=== PATIENT | male | born 1950 | race Caucasian/White ===

== ENCOUNTER → 2022-02-04 12:13 | Outpatient (CLI) | payer MEDICARE, OTHER, SELFPAY ==
--- NOTE | 2022-02-04 12:18 | DI.US.S_ITS ---
PROCEDURE: US PERIPH VENOUS LOW EXTREM BI INDICATIONS: BILATERAL KNEE SWELLING/RULE OUT DVT TECHNIQUE: Real-time imaging, as well as color and pulse Doppler interrogation, were performed of the deep veins of both legs from the inguinal ligament to the popliteal fossa. COMPARISON: [facility], US, US ABD AORTA ANEURYSM SCREEN, 02/04/2022, 12:31. FINDINGS: Right: The common femoral, femoral and popliteal veins are normally compressible, and free of intraluminal thrombus. Color and pulse Doppler demonstrate normal phasic intravascular flow. There is normal augmentation response to distal compression maneuver. Left: The common femoral, femoral and popliteal veins are normally compressible, and free of intraluminal thrombus. Color and pulse Doppler demonstrate normal phasic intravascular flow. There is normal augmentation response to distal compression maneuver. The calf veins are not well seen. IMPRESSION: Negative for deep venous thrombosis. Dictated by: Mehdi Holbrook M.D. on 02/04/2022 at 13:29 Approved by: Mehdi Holbrook M.D. on 02/04/2022 at 13:29
--- NOTE | 2022-02-04 12:18 | DI.US.S_ITS ---
PROCEDURE: US ABD AORTA ANEURYSM SCREEN INDICATIONS: BILATERAL KNEE SWELLING/RULE OUT DVT TECHNIQUE: Real time scanning was performed of the aorta and iliac arteries, with image documentation. COMPARISON: [facility], , PERIP VENOUS LOW EXTREM , 02/04/2022, 12:38. FINDINGS: Aorta: Proximal aortic diameter measures 2.7 cm. Mid-aorta measures 2.5 cm. Distal aortic diameter is 2.2 cm. Iliac arteries: Right common iliac artery measures 1.6 cm. Left common iliac artery measures 1.8 cm. IMPRESSION: Negative for aneurysm. Dictated by: Mehdi Holbrook M.D. on 02/04/2022 at 13:31 Approved by: Mehdi Holbrook M.D. on 02/04/2022 at 13:32
== END ==
PROVIDERS: Family Provider Family Medicine; PCP Family Medicine; Referring Provider Family Medicine; Visit Provider Family Medicine
DX: I83.11 Varicose veins of right lower extremity with inflammation (principal); I83.12 Varicose veins of left lower extremity with inflammation; M25.461 Effusion, right knee; M25.462 Effusion, left knee; M25.561 Pain in right knee; M25.562 Pain in left knee; Z82.49 Family history of ischemic heart disease and other diseases of the circulatory system
CPT/HCPCS: 76706; 93970

== ENCOUNTER 2022-05-24 11:45 | Emergency (ER) | payer MEDICARE, OTHER, SELFPAY ==
[2022-05-24 12:09] VITALS: BP 145/80; PULSE 70; RESP 14; TEMP 36.9; O2SAT 98; BMI 25.6
--- NOTE | 2022-05-24 12:14 | DI.US.S_ITS ---
PROCEDURE: US PERIPH VENOUS LOW EXTREM RT INDICATIONS: SWELLING/PAIN IN CALF TECHNIQUE: Real-time imaging, as well as color and pulse Doppler interrogation, were performed of the lower extremity deep veins from the inguinal ligament to the popliteal fossa. COMPARISON: None. FINDINGS: There is occlusion of the distal superficial femoral vein extending to the popliteal vein. Collaterals are identified in the proximal portion of the superficial vein as well as the midportion also demonstrating thrombus. Remaining deep venous structures are patent. IMPRESSION: Deep venous thrombosis involving the superficial femoral vein as well as popliteal vein. Dictated by: Samantha Kingston M.D. on 05/24/2022 at 13:36 Approved by: Samantha Kingston M.D. on 05/24/2022 at 13:37
--- NOTE | 2022-05-24 14:40 | ED.EXTPRO ---
HPI - Extremity Problem General Chief complaint: Extremity Problem,Nontraumatic Stated complaint: sent by DR for maybe a clot in his RT calf Time Seen by Provider: 05/24/22 14:12 Source: patient and family Mode of arrival: Ambulatory Limitations: no limitations History of Present Illness HPI Narrative: Patient is a 71-year-old male. 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 He has been on this for the past couple days. Here for evaluation of swelling and pain to his right leg/right calf. He was sent by his primary doctor for concern of a DVT. He is never had a DVT in the past. Has no chest pain. No shortness of breath. No trauma. No prolonged immobilization. Related Data Home Medications Medication Instructions Recorded Confirmed ibuprofen 200 mg tablet 200 mg PO Q6HP ##0 01/08/13 Previous Rx's Medication Instructions Recorded rivaroxaban 15 mg tablet (Xarelto) 15 mg PO BID 21 days #42 tabs 05/24/22 Allergies Allergy/AdvReac Type Severity Reaction Status Date / Time No Known Drug Allergies Allergy Verified 05/24/22 12:14 Review of Systems Constitutional Constitutional: Reports system reviewed and no additional complaints, except as documented Cardiovascular Cardiovascular: Reports system reviewed and no additional complaints, except as documented Respiratory Respiratory: Reports system reviewed and no additional complaints, except as documented Musculoskeletal Musculoskeletal: Reports system reviewed and no additional complaints, except as documented Integumentary/Breasts Skin/Breast: Reports system reviewed and no additional complaints, except as documented Hematologic/Lymphatic On Anticoagulants: No Patient History Social History Smoking Status: Former smoker Smoking Status: Former smoker alcohol intake frequency: 0-2 drinks per day Substance Use Type: does not use Exam Initial Vital Signs Initial Vital Signs: Vital Signs Temperature 98.4 F 05/24/22 12:09 Pulse Rate 70 05/24/22 12:09 Respiratory Rate 14 05/24/22 12:09 Blood Pressure 145/80 H 05/24/22 12:09 Pulse Oximetry 98 05/24/22 12:09 Oxygen Delivery Method 05/24/22 12:09 HENMT Head: normal to inspection and normocephalic Resp Effort & Inspection: normal respiratory effort Cardio Rate: regular rate Skin General: no rashes or lesions noted Neuro Sensory Exam: no sensory deficits noted Extrem Other: Right calf swelling Course Orders Ordered: ED Orders 05/24/22 12:14 US periph venous low extrem rt Stat Vital Signs Vital signs: Vital Signs - 8 hr 05/24/22 12:09 Temperature 98.4 F Pulse Rate 70 Respiratory Rate 14 Blood Pressure 145/80 H Pulse Oximetry 98 Oxygen Delivery Method Room Air MDM - Extremity (Nontraumatic) Imaging Data US - DVT: Radiologist's Impression: [address] [address] Ultrasound Report Signed Patient: Josh Winslow MR#: [id number] : 1950 Acct:[id number] Age/Sex: 71 / M Date of Service: 05/24/22 Loc: ED Accession Number: [id number] ?? Procedure: US periph venous low extrem rt Ordering Provider: Josh Villarreal D.O. PROCEDURE:? US PERIPH VENOUS LOW EXTREM RT ? INDICATIONS:? SWELLING/PAIN IN CALF ? TECHNIQUE:? Real-time imaging, as well as color and pulse Doppler interrogation, were performed of the lower extremity deep veins from the inguinal ligament to the popliteal fossa.? ? COMPARISON:? None. ? FINDINGS:? There is occlusion of the distal superficial femoral vein extending to the popliteal vein.? Collaterals are identified in the proximal portion of the superficial vein as well as the midportion also demonstrating thrombus.? Remaining deep venous structures are patent. ? IMPRESSION:? Deep venous thrombosis involving the superficial femoral vein as well as popliteal vein. ? ? Dictated by: Samantha Kingston M.D. on 05/24/2022 at 13:36 ? ? Approved by: Samantha Kingston M.D. on 05/24/2022 at 13:37 [facility] Narrative Medical decision making narrative: No chest pain. No shortness of breath. Has a confirmed DVT in the right lower extremity and physical exam findings consistent with this. Will start the patient on Xarelto. We did discuss the risks and benefits of this. We did discuss follow-up instructions and return precautions. He expressed understanding and agreement. Discharge Plan Departure Patient Disposition: Home Clinical Impression: Deep vein thrombosis of lower extremity Instructions: DI for Deep Vein Thrombosis Activity Restrictions/Additional Instructions: A prescription for a medicine called rivaroxaban/Xarelto was sent to [facility] per your request. Please take it as directed. This is the 1st 21 day treatment of this medication. Treatment will be required after this so please contact your primary doctor for a follow-up. Return to the emergency department for any new worsening symptoms. Prescriptions: New Xarelto 15 mg tablet 15 mg PO BID 21 Days Qty: 42 0RF Rx Instructions: must administer with evening meal No Action ibuprofen 200 MG tablet 200 mg PO Q6HP Qty: 0 Referrals: Romy Martinez MD [Primary Care Provider] -
[2022-05-24 14:52] VITALS: BP 135/75; PULSE 66; RESP 18; O2SAT 99
== END 2022-05-24 14:53 | disposition home or self-care (01) ==
PROVIDERS: Emergency Provider Emergency Medicine; Family Provider Family Medicine; PCP Family Medicine
DX: I82.401 Acute embolism and thrombosis of unspecified deep veins of right lower extremity (principal)
CPT/HCPCS: 93971; 99283

== ENCOUNTER → 2022-06-20 14:51 | Outpatient (CLI) | payer MEDICARE, OTHER, SELFPAY ==
--- NOTE | 2022-06-20 14:53 | DI.CT.S_ITS ---
PROCEDURE: CT IVP A/P W/WO INDICATIONS: MICROSCOPIC HEMATURIA TECHNIQUE: Optional 5 mm thick noncontrast images acquired from the diaphragm to the symphysis pubis. After the administration of intravenous contrast, 5 mm thick images acquired from the diaphragm to the symphysis pubis after a 10-minute delay. 2 mm thick coronal and sagittal reformats were then performed of the kidneys and ureters. For radiation dose reduction, the following was used: automated exposure control, adjustment of mA and/or kV according to patient size. COMPARISON: None. FINDINGS: Image quality: Good Lower chest: Scattered scarring/atelectasis. Solid organs: Subcentimeter lesions are too small to characterize. Liver is otherwise unremarkable. Gallbladder is unremarkable. No pathologic dilation of the biliary tree or pancreatic duct. There is a cystic lesion measuring 1.4-1.5 cm in the body of the pancreas. Tiny pancreatic calcifications suggesting of prior inflammation. No splenomegaly. No adrenal nodules. Bosniak 1 and 2 renal lesions are present, for which no dedicated followup is necessary per 2019 proposed guidelines. No hydronephrosis. No ureter filling defect. No radiopaque calculus. Bladder is mildly distended, without a measurable mass. Prostatomegaly, heterogeneous enhancement, and suspected median lobe hypertrophy. Vessels and lymph nodes: No abdominal aortic aneurysm or pathologic adenopathy by size criteria. Bowel and peritoneum: No bowel obstruction. No pathologic ascites. Moderate fecal loading. Focal narrowing at the hepatic flexure is seen in large bowel. Body wall: Unremarkable Pelvis: As above Bones: No acute or suspicious osseous lesions. Scattered degenerative changes. IMPRESSION: No upper tract disease. Consider cystoscopy to evaluate for lower tract disease. There is prostatomegaly, heterogeneous enhancement, and suspected median lobe hypertrophy, not well evaluated on CT. Consider correlation with PSA and if needed MRI. Narrowing of the hepatic flexure of the colon, consider correlation with age-appropriate colonoscopy results. No discrete mass. 1.4 cm cystic lesion of the body of the pancreas, consider nonemergent follow-up with pancreas MRI. Small pancreatic calcifications suggestive of prior inflammation. Other findings as above. Dictated by: Elías River M.D. on 06/20/2022 at 16:00 Approved by: Elías River M.D. on 06/20/2022 at 16:07
== END ==
PROVIDERS: Family Provider Family Medicine; PCP Family Medicine; Referring Provider Urology; Visit Provider Urology
DX: R31.29 Other microscopic hematuria (principal); K86.2 Cyst of pancreas; N40.0 Benign prostatic hyperplasia without lower urinary tract symptoms
CPT/HCPCS: 74178; Q9967

== ENCOUNTER → 2022-08-09 11:42 | Outpatient (CLI) | payer MEDICARE, OTHER, SELFPAY ==
--- NOTE | 2022-08-09 | DI.MRI.S_ITS ---
PROCEDURE: MR ABDOMEN WO/W CON INDICATIONS: Cyst of pancreas TECHNIQUE: Coronal HASTE, axial 2D FLASH in- and [id number]; axial breath-hold T2 FSE with fat saturation from the hepatic dome to the iliac crests. Oblique coronal thin-slice and radial thick slab HASTE through the biliary system. Dynamic axial VIBE during administration of contrast. Post-contrast coronal VIBE or 2D FLASH with fat saturation from the hepatic dome to the iliac crests. Optional diffusion weighted imaging and ADC may be performed. COMPARISON: [facility], CT, CT IVP A/P W/WO, 06/20/2022, 15:09. FINDINGS: Image quality: Good. Pancreas and biliary system: No intrahepatic or extrahepatic biliary ductal dilatation. The gallbladder is not distended. No gallstones identified. No pancreatic ductal dilatation. Cyst in the body of the pancreas measuring 1.4 cm, (10/15). No main duct communication is seen. No enhancement or restricted diffusion. No loculated peripancreatic fluid collection. Solid organs: Liver is normal in size and enhancement. Small hepatic cysts. Spleen is normal in size and enhancement. No adrenal nodules. Kidneys are normal in size and enhancement, without hydronephrosis. Small T2 hyperintense renal cysts. Nodes and vessels: No retroperitoneal or mesenteric adenopathy by size criteria. Aorta and inferior vena cava are normal in size. Bowel and peritoneum: Unenhanced bowel loops are normal in caliber throughout. No free fluid. Lung bases: No basal pleural effusions. Heart size is normal. Bones and soft tissues: No ventral hernias. Bone marrow is normal in overall signal. Probable intraosseous hemangioma at T7. IMPRESSION: 1. Cyst at the body of the pancreas measuring 1.4 cm. No suspicious imaging features. Recommend follow-up CT pancreas or MRI in 2 years to demonstrate stability. 2. No biliary or pancreatic ductal dilatation. Dictated by: Marcus Persaud M.D. on 08/09/2022 at 21:15 Approved by: Marcus Persaud M.D. on 08/09/2022 at 21:26
== END ==
PROVIDERS: Family Provider Family Medicine; PCP Family Medicine; Referring Provider Nurse Practitioner Family; Visit Provider Nurse Practitioner Family
DX: K86.2 Cyst of pancreas (principal)
CPT/HCPCS: 74183; A9579

== ENCOUNTER 2022-11-15 11:07 | Emergency (ER) | payer MEDICARE, OTHER, SELFPAY ==
[2022-11-15] VITALS (42 sets, daily range): BP systolic 97–124; BP diastolic 53–67; PULSE 62–76; RESP 15–25; TEMP 36.9; O2SAT 90–97; BMI 25.6
--- NOTE | 2022-11-15 11:18 | DI.RAD.S_ITS ---
PROCEDURE: XR CHEST 1V INDICATIONS: suspected sepsis TECHNIQUE: One view of the chest was acquired. COMPARISON: [facility], CHEST 2 VIEW, 01/28/2015, 15:52. FINDINGS: Surgical changes and devices: None. Lungs and pleura: No dense consolidation. No pleural effusion. Mediastinum: Mediastinal contours appear normal. Heart size is normal. Bones and chest wall: No suspicious bony lesions. Overlying soft tissues appear unremarkable. IMPRESSION: No acute radiographic abnormality Dictated by: Elías River M.D. on 11/15/2022 at 13:06 Approved by: Elías River M.D. on 11/15/2022 at 13:07
[2022-11-15 11:33] LABS: Add Manual Diff / Slide Review NO; Basophils Absolute Auto 100 /uL (0-100); Basophils Percent Auto 0.7 % (0-2); Eosinophils Absolute Auto 100 /uL (0-450); Eosinophils Percent Auto 0.9 % (2-4); Hemoglobin 14.6 g/dL (13.5-17.5); Lymphocytes Absolute Auto 1400 /uL (1100-4500); Lymphocytes Percent Auto 18.4 % (25-40); Mean Corpuscular HGB Conc 32.4 % (30-36); Mean Corpuscular Hemoglobin 27.5 PG (26-34); Monocytes Absolute Auto 800 /uL (0-900); Monocytes Percent Auto 9.7 % (3-14); Neutrophils Absolute Auto 5500 /uL (1500-7000); Neutrophils Percent Auto 70.3 % (50-75); Platelet Count 276 X10^3/uL (150-400); Red Blood Cell Count 5.29 X10^6/uL (4.5-5.9); Red Cell Distribution Width 14.1 % (11.6-14.8); White Blood Cell Count 7.8 X10^3/uL (4.5-11.0)
[2022-11-15 11:38] LABS: INR 1.1 (0.9-1.3)
[2022-11-15 11:41] LABS: PTT Partial Thromboplastin Tim 28 SECONDS (26-36)
[2022-11-15 11:42] LABS: Alanine Aminotransferase 21 IU/L (<50); Albumin 3.3 g/dL (3.5-5.0); Albumin Globulin Ratio 1.3 (1.0-2.8); Alkaline Phosphatase 50 U/L (38-126); Aspartate Aminotransferase 32 IU/L (17-59); BUN Creatinine Ratio 22.2 (6-22); Bilirubin Total 0.4 mg/dL (0.2-1.3); Blood Urea Nitrogen 24 mg/dL (9-20); Calcium 9.4 mg/dL (8.4-10.2); Carbon Dioxide 30 mmol/L (22-32); Chloride 103 mmol/L (98-107); Estimated Glomerular Filt Rate > 60 mL/min (>60); Globulin 2.6 g/dL (1.7-4.1); Glucose 98 mg/dL (80-110); HEMOLYSIS < 15 (0-50); Lactate (Lactic Acid) 1.6 mmol/L (0.7-2.1); Lipase 42 U/L (23-300); Potassium 4.4 mmol/L (3.4-5.1); Sodium 138 mmol/L (137-145); Total Protein 5.9 g/dL (6.3-8.2)
[2022-11-15 11:58] LABS: Procalcitonin 0.08 ng/mL (<0.5)
[2022-11-15] MEDS: SODIUM CHLORIDE 0.9% 1,000 ML 1000 ML IV (12:10)
[2022-11-15 12:17] LABS: Adenovirus Not Detected (Not Detect); B. parapertussis Not Detected (Not Detecte); Bordetella pertussis Not Detected (Not Detecte); Chlamydophila pneumoniae Not Detected (Not Detect); Coronavirus 229E Not Detected (Not Detect); Coronavirus HKU1 Not Detected (Not Detect); Coronavirus NL 63 Not Detected (Not Detect); Coronavirus OC43 Not Detected (Not Detect); Human Metapneumovirus Not Detected (Not Detect); Human Rhinovirus/Enterovirus Not Detected (Not Detect); Influenza A Not Detected (Not Detect); Influenza B Not Detected (Not Detect); Mycoplasma pneumoniae Not Detected (Not Detect); Parainfluenza Virus 1 Not Detected (Not Detect); Parainfluenza Virus 2 Not Detected (Not Detect); Parainfluenza Virus 3 Not Detected (Not Detect); Parainfluenza Virus 4 Not Detected (Not Detect); Respiratory Syncytial Virus Not Detected (Not Detect); SARS- CoV-2 Not Detected (Not Detecte)
[2022-11-15 12:26] LABS: NT-proBNP (BNP-Adult 18+) 259 pg/mL (<125); Troponin I < 0.012 ng/mL (0.01-0.034)
--- NOTE | 2022-11-15 12:28 | PC.NURSE ---
Pt states BP is typically 110/65. Pt is tapering off of a year of daily steroids. Pt states he has a new RX for methotrexate
[2022-11-15 14:08] LABS: D Dimer 27449 ng/ml (<500)
--- NOTE | 2022-11-15 14:23 | DI.CT.S_ITS ---
PROCEDURE: CT ANGIO CHEST PE PROTOCOL INDICATIONS: Elevated dimer; SOB TECHNIQUE: After the administration of intravenous contrast, 2 mm thick sections acquired from the pulmonary apices to the posterior costophrenic angles. 3-dimensional maximum intensity projection (MIP) coronal and sagittal reformats were then acquired through the thorax. For radiation dose reduction, the following was used: automated exposure control, adjustment of mA and/or kV according to patient size. COMPARISON: [facility], CR, XR CHEST 1V, 11/15/2022, 11:41. FINDINGS: Image quality: Good Lungs and pleura: Emphysema. Scattered scarring/atelectasis. Mild peripheral ground-glass opacities, for example in the lateral inferior right upper lobe. No pleural effusions. Mediastinum, heart, and esophagus: Large right-sided pulmonary embolism, involving the main pulmonary artery. There also subsegmental emboli in left. No hiatal hernia. Borderline enlarged mediastinal lymph nodes, possibly reactive, attention on follow-up there is CT evidence of right heart strain. Chest wall and thyroid: Unremarkable Upper abdomen: No gross abnormality on these arterial phase images. Suspected pancreatic cystic lesion is seen in the body measuring up to 1.4 cm. This was noted on prior MRI. Pancreatic calcifications indicating prior inflammation. There is also suspected left lobe hepatic cyst. Bones: No acute or suspicious osseous finding. There is a vertebral hemangioma. IMPRESSION: Bilateral pulmonary emboli, large on the right involving the right pulmonary artery. This was communicated to Michael CONNELLY at the time stamp below. There are suspected pulmonary infarcts versus inflammatory/infectious ground-glass opacities. Borderline enlarged mediastinal lymph nodes are present. Consider future imaging surveillance to assess for resolution. There is CT evidence of right heart strain. Other findings as above. Dictated by: Elías River M.D. on 11/15/2022 at 15:02 Approved by: Elías River M.D. on 11/15/2022 at 15:08
--- NOTE | 2022-11-15 14:24 | ED_ITS ---
HPI - General Adult <Sylvia Rodriguez PA-C - Last Filed: 11/15/22 20:32> General Chief complaint: Shortness of Breath/Dyspnea Stated complaint: Pneumonia Time Seen by Provider: 11/15/22 12:11 Source: patient Mode of arrival: Ambulatory History of Present Illness HPI narrative: 71-year-old male with past medical history CPPD, pseudogout, DVT presents to the ED with 10 days of worsening shortness of breath and fatigue. Patient states he was diagnosed with a pneumonia last week at [place], completed a full course of Zi thromax with minimal relief. Patient endorses that his fatigue, lightheadedness, shortness of breath are actually worsening. Patient denies fever, chills for the past 2 days. Patient denies nausea, vomiting, abdominal pain, flank pain, dysuria, dizziness, syncope. Related Data Home Medications Medication Instructions Recorded Confirmed ibuprofen 200 mg tablet 200 mg PO Q6HP ##0 01/08/13 Allergies Allergy/AdvReac Type Severity Reaction Status Date / Time colchicine Allergy Verified 11/15/22 11:13 Review of Systems <Sylvia Rodriguez PA-C - Last Filed: 11/15/22 20:32> Review of Systems ROS Unobtainable: All systems reviewed & are unremarkable except as noted in HPI and below Constitutional Constitutional: Denies chills, Reports fatigue, Denies fever(s), Denies frequent falls, Reports lethargy and Denies weakness Eyes Eyes: Denies change in vision, Denies eye discharge, Denies irritation and Denies loss of vision ENT Ears, Nose, Mouth, and Throat: Denies change in voice, Denies dizziness, Denies neck pain, Denies sore throat and Denies throat swelling Cardiovascular Cardiovascular: Denies chest pain, Denies irregular heart rhythm, Reports lightheadedness, Denies palpitations, Reports dyspnea, Reports dyspnea on exertion and Denies orthopnea Respiratory Respiratory: Denies cough, Reports dyspnea, Reports dyspnea on exertion and Denies wheezing Gastrointestinal Gastrointestinal: Denies abdominal pain, Denies change in bowel habits, Denies diarrhea, Denies nausea and Denies vomiting Genitourinary Genitourinary: Denies hematuria, Denies flank pain, Denies urinary incontinence and Denies urinary urgency Musculoskeletal Musculoskeletal: Denies back pain, Denies muscle weakness, Denies neck pain, Denies numbness and Denies tingling Integumentary/Breasts Skin/Breast: Denies pruritus, Denies erythema, Denies rash and Denies wounds Neurologic Neurologic: Denies behavioral changes, Denies confusion, Denies dizziness, Denies frequent falls, Denies loss of vision, Denies numbness, Denies tingling and Denies weakness Psychiatric Psychiatric: Denies anxiety, Denies behavioral changes, Denies confusion, Denies depression, Denies homicidal ideation and Denies suicidal ideation Endocrine Endocrine: Reports fatigue, Denies flushing and Denies palpitations Hematologic/Lymphatic Hematologic/Lymphatic: Denies easy bruising Allergic/Immunologic Allergic/Immunologic: Denies urticaria, Denies throat swelling and Denies wheezing Patient History <Sylvia Rodriguez PA-C - Last Filed: 11/15/22 20:32> Social History Smoking Status: Former smoker Smoking Status: Former smoker alcohol intake frequency: 0-2 drinks per day Substance Use Type: does not use Exam <Sylvia Rodriguez PA-C - Last Filed: 11/15/22 20:32> Narrative Exam Narrative: Const General:?cooperative, healthy appearing and comfortable [facility] Head:?normal to inspection Ears:?hearing grossly normal bilaterally Nose:?external nose normal Face and sinus:?normal facial exam and sinuses nontender Mouth:?oral mucosae normal Throat:?posterior oropharynx normal Eyes General:?appearance normal, both eyes and all related structures Neck Neck:?normal visual inspection and no lymphadenopathy noted Resp Effort & Inspection:?normal respiratory effort Auscultation:?clear to auscultation bilaterally Cardio Rate:?regular rate Rhythm:?regular rhythm Neuro General:?patient alert, patient awake and patient oriented x3 Initial Vital Signs Initial Vital Signs: Vital Signs Temperature 98.5 F 11/15/22 11:08 Pulse Rate 75 11/15/22 11:08 Respiratory Rate 15 11/15/22 11:08 Blood Pressure 108/64 11/15/22 11:08 Pulse Oximetry 92 11/15/22 11:08 Oxygen Delivery Method Room Air 11/15/22 11:08 <Hebert White DO - Last Filed: 11/16/22 02:22> Initial Vital Signs Initial Vital Signs: Vital Signs Temperature 98.5 F 11/15/22 11:08 Pulse Rate 75 11/15/22 11:08 Respiratory Rate 15 11/15/22 11:08 Blood Pressure 108/64 11/15/22 11:08 Pulse Oximetry 92 11/15/22 11:08 Oxygen Delivery Method Room Air 11/15/22 11:08 Course <Sylvia Rodriguez PA-C - Last Filed: 11/15/22 20:32> Orders Ordered: ED Orders 11/15/22 22:00 PTT Partial Thromboplastin Juvenal Q6H 11/16/22 03:45 PTT Partial Thromboplastin Juvenal Q6H 11/16/22 05:00 Hemoglobin and Hematocrit DAILY Platelet Count DAILY Discontinued Medications Heparin Sodium (Porcine) (Heparin 5,000 Unit/Ml Vial) 7,400 unit 80 unit/kg (7400 unit) IV NOW ONE Stop: 11/15/22 15:41 Last Admin: 11/15/22 16:07 Dose: 7,400 unit Documented By: SIGIFREDO Sodium Chloride (Normal Saline 0.9%) 1,000 mls @ 1,000 mls/hr IV BOLUS ONE Stop: 11/15/22 12:17 Last Infusion: 11/15/22 13:10 Dose: 0 mls/hr Documented By: Admin: 11/15/22 12:10 Dose: 1,000 mls/hr Documented By: SIGIFREDO Sodium Chloride (Normal Saline 0.9%) 1,000 mls @ 500 mls/hr IV BOLUS ONE Stop: 11/15/22 17:33 Last Admin: 11/15/22 17:13 Dose: Not Given Documented By: SIGIFREDO(2) Sodium Chloride (Normal Saline 0.9%) 1,000 mls @ 500 mls/hr IV BOLUS ONE Stop: 11/15/22 17:36 Last Infusion: 11/15/22 19:27 Dose: 0 mls/hr Documented By: Admin: 11/15/22 15:44 Dose: 500 mls/hr Documented By: SIGIFREDO Heparin Sodium/Dextrose (Heparin Drip) 25,000 unit in 500 mls @ 33.475 mls/hr IV CONT JAKE; Protocol Last Titration: 11/15/22 23:50 Dose: 0 units/kg/hr, 0 mls/hr Documented By: GELY Co-signed By: CARLOS Titration: 11/15/22 22:59 Dose: 0 units/kg/hr, 0 mls/hr Documented By: DREAD Co-signed By: CARLOS Admin: 11/15/22 16:08 Dose: 18 units/kg/hr, 33.475 mls/hr Documented By: SIGIFREDO Co-signed By: TATI Vital Signs Vital signs: Vital Signs - 8 hr 11/15/22 18:30 11/15/22 18:30 11/15/22 18:45 Pulse Rate 67 Respiratory Rate 24 Blood Pressure 124/66 112/60 Pulse Oximetry 91 Oxygen Delivery Method Oximask Oxygen Flow Rate 5 11/15/22 18:45 11/15/22 19:00 11/15/22 19:00 Pulse Rate 62 62 Respiratory Rate 23 23 Blood Pressure 111/62 Pulse Oximetry 91 94 Oxygen Delivery Method Oximask Oximask Oxygen Flow Rate 5 8 11/15/22 19:40 11/15/22 20:01 Pulse Rate 68 68 Respiratory Rate 23 23 Blood Pressure 113/67 113/67 Pulse Oximetry 94 94 Oxygen Delivery Method Oxygen Flow Rate <Hebert White DO - Last Filed: 11/16/22 02:22> Orders Ordered: ED Orders 11/15/22 22:00 PTT Partial Thromboplastin Juvenal Q6H 11/16/22 03:45 PTT Partial Thromboplastin Juvenal Q6H 11/16/22 05:00 Hemoglobin and Hematocrit DAILY Platelet Count DAILY Discontinued Medications Heparin Sodium (Porcine) (Heparin 5,000 Unit/Ml Vial) 7,400 unit 80 unit/kg (7400 unit) IV NOW ONE Stop: 11/15/22 15:41 Last Admin: 11/15/22 16:07 Dose: 7,400 unit Documented By: SIGIFREDO Sodium Chloride (Normal Saline 0.9%) 1,000 mls @ 1,000 mls/hr IV BOLUS ONE Stop: 11/15/22 12:17 Last Infusion: 11/15/22 13:10 Dose: 0 mls/hr Documented By: Admin: 11/15/22 12:10 Dose: 1,000 mls/hr Documented By: SIGIFREDO Sodium Chloride (Normal Saline 0.9%) 1,000 mls @ 500 mls/hr IV BOLUS ONE Stop: 11/15/22 17:33 Last Admin: 11/15/22 17:13 Dose: Not Given Documented By: SIGIFREDO(2) Sodium Chloride (Normal Saline 0.9%) 1,000 mls @ 500 mls/hr IV BOLUS ONE Stop: 11/15/22 17:36 Last Infusion: 11/15/22 19:27 Dose: 0 mls/hr Documented By: Admin: 11/15/22 15:44 Dose: 500 mls/hr Documented By: SIGIFREDO Heparin Sodium/Dextrose (Heparin Drip) 25,000 unit in 500 mls @ 33.475 mls/hr IV CONT JAKE; Protocol Last Titration: 11/15/22 23:50 Dose: 0 units/kg/hr, 0 mls/hr Documented By: GELY Co-signed By: CARLOS Titration: 11/15/22 22:59 Dose: 0 units/kg/hr, 0 mls/hr Documented By: DREAD Co-signed By: CARLOS Admin: 11/15/22 16:08 Dose: 18 units/kg/hr, 33.475 mls/hr Documented By: SIGIFREDO Co-signed By: TATI Vital Signs Vital signs: Vital Signs - 8 hr 11/15/22 18:30 11/15/22 18:30 11/15/22 18:45 Pulse Rate 67 Respiratory Rate 24 Blood Pressure 124/66 112/60 Pulse Oximetry 91 Oxygen Delivery Method Oximask Oxygen Flow Rate 5 11/15/22 18:45 11/15/22 19:00 11/15/22 19:00 Pulse Rate 62 62 Respiratory Rate 23 23 Blood Pressure 111/62 Pulse Oximetry 91 94 Oxygen Delivery Method Oximask Oximask Oxygen Flow Rate 5 8 11/15/22 19:40 11/15/22 20:01 Pulse Rate 68 68 Respiratory Rate 23 23 Blood Pressure 113/67 113/67 Pulse Oximetry 94 94 Oxygen Delivery Method Oxygen Flow Rate Medical Decision Making <Sylvia Rodriguez PA-C - Last Filed: 11/15/22 20:32> Lab Data 11/15/22 11:15 11/15/22 11:15 Labs: Lab Results 11/15/22 11/15/22 11/15/22 Range/Units 11:13 11:15 11:15 WBC 7.8 (4.5-11.0) X10^3/uL RBC 5.29 (4.5-5.9) X10^6/uL Hgb 14.6 (13.5-17.5) g/dL Hct 45.0 (41-53) % MCV 85.0 (80-100) fL MCH 27.5 (26-34) PG MCHC 32.4 (30-36) % RDW 14.1 (11.6-14.8) % Plt Count 276 (150-400) X10^3/uL Neut % (Auto) 70.3 (50-75) % Lymph % (Auto) 18.4 L (25-40) % [place] % (Auto) 9.7 (3-14) % Eos % (Auto) 0.9 L (2-4) % Baso % (Auto) 0.7 (0-2) % Neut # (Auto) 5500 (1916-9175) /uL Lymph # (Auto) 1400 (3489-6120) /uL [place] # (Auto) 800 (0-900) /uL Eos # (Auto) 100 (0-450) /uL Baso # (Auto) 100 (0-100) /uL PT 13.0 H (10.1-12.7) SECONDS INR 1.1 (0.9-1.3) APTT 28 (26-36) SECONDS D-Dimer (<500) ng/ml Sodium (137-145) mmol/L Potassium (3.4-5.1) mmol/L Chloride (98-107) mmol/L Carbon Dioxide (22-32) mmol/L BUN (9-20) mg/dL Creatinine (0.66-1.25) mg/dL Estimated GFR (>60) mL/min BUN/Creatinine Ratio (6-22) Glucose (80-110) mg/dL Lactate (0.7-2.1) mmol/L Calcium (8.4-10.2) mg/dL Total Bilirubin (0.2-1.3) mg/dL AST (17-59) IU/L ALT (<50) IU/L Alkaline Phosphatase (38-126) U/L Troponin I (0.01-0.034) ng/mL NT-Pro-B Natriuret Pep (<125) pg/mL Total Protein (6.3-8.2) g/dL Albumin (3.5-5.0) g/dL Globulin (1.7-4.1) g/dL Albumin/Globulin Ratio (1.0-2.8) Lipase (23-300) U/L Procalcitonin (<0.5) ng/mL Chlamy pneumoniae PCR Not detected (Not Detect) Adenovirus (PCR) Not detected (Not Detect) B. pertussis DNA (PCR) Not detected (Not Detecte) B.parapertussis DNA PCR Not detected (Not Detecte) Coronavirus OC43 (PCR) Not detected (Not Detect) Coronavirus HKU1 (PCR) Not detected (Not Detect) Coronavirus 229E (PCR) Not detected (Not Detect) SARS-CoV-2 (PCR) Not detected (Not Detecte) Coronavirus NL63 (PCR) Not detected (Not Detect) Human Metapneumovir PCR Not detected (Not Detect) Influenza Type A (PCR) Not detected (Not Detect) Influenza Type B (PCR) Not detected (Not Detect) M. pneumoniae (PCR) Not detected (Not Detect) Parainfluenza 1 (PCR) Not detected (Not Detect) Parainfluenza 2 (PCR) Not detected (Not Detect) Parainfluenza 3 (PCR) Not detected (Not Detect) Parainfluenza 4 (PCR) Not detected (Not Detect) RSV (PCR) Not detected (Not Detect) Entero/Rhino (PCR) Not detected (Not Detect) 11/15/22 11/15/22 11/15/22 Range/Units 11:15 11:15 11:15 WBC (4.5-11.0) X10^3/uL RBC (4.5-5.9) X10^6/uL Hgb (13.5-17.5) g/dL Hct (41-53) % MCV (80-100) fL MCH (26-34) PG MCHC (30-36) % RDW (11.6-14.8) % Plt Count (150-400) X10^3/uL Neut % (Auto) (50-75) % Lymph % (Auto) (25-40) % [place] % (Auto) (3-14) % Eos % (Auto) (2-4) % Baso % (Auto) (0-2) % Neut # (Auto) (9745-9320) /uL Lymph # (Auto) (2172-3433) /uL [place] # (Auto) (0-900) /uL Eos # (Auto) (0-450) /uL Baso # (Auto) (0-100) /uL PT (10.1-12.7) SECONDS INR (0.9-1.3) APTT (26-36) SECONDS D-Dimer (<500) ng/ml Sodium 138 (137-145) mmol/L Potassium 4.4 (3.4-5.1) mmol/L Chloride 103 (98-107) mmol/L Carbon Dioxide 30 (22-32) mmol/L BUN 24 H (9-20) mg/dL Creatinine 1.08 (0.66-1.25) mg/dL Estimated GFR > 60 (>60) mL/min BUN/Creatinine Ratio 22.2 H (6-22) Glucose 98 (80-110) mg/dL Lactate 1.6 (0.7-2.1) mmol/L Calcium 9.4 (8.4-10.2) mg/dL Total Bilirubin 0.4 (0.2-1.3) mg/dL AST 32 (17-59) IU/L ALT 21 (<50) IU/L Alkaline Phosphatase 50 (38-126) U/L Troponin I < 0.012 (0.01-0.034) ng/mL NT-Pro-B Natriuret Pep 259 H (<125) pg/mL Total Protein 5.9 L (6.3-8.2) g/dL Albumin 3.3 L (3.5-5.0) g/dL Globulin 2.6 (1.7-4.1) g/dL Albumin/Globulin Ratio 1.3 (1.0-2.8) Lipase 42 (23-300) U/L Procalcitonin 0.08 (<0.5) ng/mL Chlamy pneumoniae PCR (Not Detect) Adenovirus (PCR) (Not Detect) B. pertussis DNA (PCR) (Not Detecte) B.parapertussis DNA PCR (Not Detecte) Coronavirus OC43 (PCR) (Not Detect) Coronavirus HKU1 (PCR) (Not Detect) Coronavirus 229E (PCR) (Not Detect) SARS-CoV-2 (PCR) (Not Detecte) Coronavirus NL63 (PCR) (Not Detect) Human Metapneumovir PCR (Not Detect) Influenza Type A (PCR) (Not Detect) Influenza Type B (PCR) (Not Detect) M. pneumoniae (PCR) (Not Detect) Parainfluenza 1 (PCR) (Not Detect) Parainfluenza 2 (PCR) (Not Detect) Parainfluenza 3 (PCR) (Not Detect) Parainfluenza 4 (PCR) (Not Detect) RSV (PCR) (Not Detect) Entero/Rhino (PCR) (Not Detect) 11/15/22 11/15/22 11/15/22 Range/Units 11:15 17:19 22:00 WBC (4.5-11.0) X10^3/uL RBC (4.5-5.9) X10^6/uL Hgb (13.5-17.5) g/dL Hct (41-53) % MCV (80-100) fL MCH (26-34) PG MCHC (30-36) % RDW (11.6-14.8) % Plt Count (150-400) X10^3/uL Neut % (Auto) (50-75) % Lymph % (Auto) (25-40) % [place] % (Auto) (3-14) % Eos % (Auto) (2-4) % Baso % (Auto) (0-2) % Neut # (Auto) (3446-7802) /uL Lymph # (Auto) (0709-1606) /uL [place] # (Auto) (0-900) /uL Eos # (Auto) (0-450) /uL Baso # (Auto) (0-100) /uL PT (10.1-12.7) SECONDS INR (0.9-1.3) APTT 30 172 H* D (26-36) SECONDS D-Dimer 97999 H (<500) ng/ml Sodium (137-145) mmol/L Potassium (3.4-5.1) mmol/L Chloride (98-107) mmol/L Carbon Dioxide (22-32) mmol/L BUN (9-20) mg/dL Creatinine (0.66-1.25) mg/dL Estimated GFR (>60) mL/min BUN/Creatinine Ratio (6-22) Glucose (80-110) mg/dL Lactate (0.7-2.1) mmol/L Calcium (8.4-10.2) mg/dL Total Bilirubin (0.2-1.3) mg/dL AST (17-59) IU/L ALT (<50) IU/L Alkaline Phosphatase (38-126) U/L Troponin I (0.01-0.034) ng/mL NT-Pro-B Natriuret Pep (<125) pg/mL Total Protein (6.3-8.2) g/dL Albumin (3.5-5.0) g/dL Globulin (1.7-4.1) g/dL Albumin/Globulin Ratio (1.0-2.8) Lipase (23-300) U/L Procalcitonin (<0.5) ng/mL Chlamy pneumoniae PCR (Not Detect) Adenovirus (PCR) (Not Detect) B. pertussis DNA (PCR) (Not Detecte) B.parapertussis DNA PCR (Not Detecte) Coronavirus OC43 (PCR) (Not Detect) Coronavirus HKU1 (PCR) (Not Detect) Coronavirus 229E (PCR) (Not Detect) SARS-CoV-2 (PCR) (Not Detecte) Coronavirus NL63 (PCR) (Not Detect) Human Metapneumovir PCR (Not Detect) Influenza Type A (PCR) (Not Detect) Influenza Type B (PCR) (Not Detect) M. pneumoniae (PCR) (Not Detect) Parainfluenza 1 (PCR) (Not Detect) Parainfluenza 2 (PCR) (Not Detect) Parainfluenza 3 (PCR) (Not Detect) Parainfluenza 4 (PCR) (Not Detect) RSV (PCR) (Not Detect) Entero/Rhino (PCR) (Not Detect) Urine Dip Bedside Urine Glucose Negative Bedside Urine Bilirubin - Negative Bedside Urine Ketone - Negative Urine Specific [place] 1.015 Bedside Urine Occult Blood - Negative Bedside Urine pH 6.0 Bedside Urine Protein - Negative Bedside Urine Urobilinogen - Negative Bedside Urine Nitrite - Negative Bedside Urine Leukocytes - Negative Esterase Point of care testing: Urine Dip Bedside Urine Glucose Negative Bedside Urine Bilirubin - Negative Bedside Urine Ketone - Negative Urine Specific [place] 1.015 Bedside Urine Occult Blood - Negative Bedside Urine pH 6.0 Bedside Urine Protein - Negative Bedside Urine Urobilinogen - Negative Bedside Urine Nitrite - Negative Bedside Urine Leukocytes - Negative Esterase MDM Narrative Medical decision making narrative: 71-year-old male with past medical history CPPD, pseudogout, DVT presents to the ED with 10 days of worsening shortness of breath and fatigue. Concern for ACS versus pneumonia versus CHF exacerbation versus PE versus malignancy versus ot her. Will obtain EKG, chest x-ray, labs, troponin, BNP, D-dimer. Will reassess. Patient's oxygen saturation bruise running below his baseline between 88% and 91%. Patient put on 2L O2 NC, susequently increased to 3L of NC, is maintaining 90-91%. [place] [address]. All other labs within normal limits. EKG without acute findings. Chest x-ray without acute findings. CT PE has been or dered. CT PE shows bilateral pulmonary emboli large on the right involving the right pulmonary artery. There are suspected pulmonary infarcts versus inflammatory or infectious ground-glass opacities. Borderline enlarged mediastinal lymph nodes are seen, likely reactive. There are also subsegmental emboli in the left. sPESI score inddicates high risk. DAYAN score 4, intermediate risk. Discussed findings with patient. Patient to be started on anticoagulation with heparin. Patient's blood pressure intermittently trending soft with systolic in the mid to high 90s. Patient was given 1 L of saline prior to this. Will give another 500ml of IV fluids. Plan is to transfer patient to a center with capability for higher care such as E[facility]. Dr. Lu, biochemistry professor from [facility] was consulted, he accepts the patient. Hospitalist from [facility] will admit. [facility] was contacted again, they are unable to accept our patient due to nursing staffing shortages. Our hospitalist Dr. Myers was consulted, he recommends we transfer the patient to a place with higher level of care. Will continue to seek out other places to transfer the patient to. Patient is on 8L NC saturationg at 97%. Will trial high flow. Patient doing well on high-flow. Called patient's to update her on status. Patient is signed out to Dr. Hebert White. <Hebert White, DO - Last Filed: 11/16/22 02:22> Lab Data Labs: Lab Results 11/15/22 11/15/22 11/15/22 Range/Units 11:13 11:15 11:15 WBC 7.8 (4.5-11.0) X10^3/uL RBC 5.29 (4.5-5.9) X10^6/uL Hgb 14.6 (13.5-17.5) g/dL Hct 45.0 (41-53) % MCV 85.0 (80-100) fL MCH 27.5 (26-34) PG MCHC 32.4 (30-36) % RDW 14.1 (11.6-14.8) % Plt Count 276 (150-400) X10^3/uL Neut % (Auto) 70.3 (50-75) % Lymph % (Auto) 18.4 L (25-40) % [place] % (Auto) 9.7 (3-14) % Eos % (Auto) 0.9 L (2-4) % Baso % (Auto) 0.7 (0-2) % Neut # (Auto) 5500 (0340-1770) /uL Lymph # (Auto) 1400 (7842-8043) /uL [place] # (Auto) 800 (0-900) /uL Eos # (Auto) 100 (0-450) /uL Baso # (Auto) 100 (0-100) /uL PT 13.0 H (10.1-12.7) SECONDS INR 1.1 (0.9-1.3) APTT 28 (26-36) SECONDS D-Dimer (<500) ng/ml Sodium (137-145) mmol/L Potassium (3.4-5.1) mmol/L Chloride (98-107) mmol/L Carbon Dioxide (22-32) mmol/L BUN (9-20) mg/dL Creatinine (0.66-1.25) mg/dL Estimated GFR (>60) mL/min BUN/Creatinine Ratio (6-22) Glucose (80-110) mg/dL Lactate (0.7-2.1) mmol/L Calcium (8.4-10.2) mg/dL Total Bilirubin (0.2-1.3) mg/dL AST (17-59) IU/L ALT (<50) IU/L Alkaline Phosphatase (38-126) U/L Troponin I (0.01-0.034) ng/mL NT-Pro-B Natriuret Pep (<125) pg/mL Total Protein (6.3-8.2) g/dL Albumin (3.5-5.0) g/dL Globulin (1.7-4.1) g/dL Albumin/Globulin Ratio (1.0-2.8) Lipase (23-300) U/L Procalcitonin (<0.5) ng/mL Chlamy pneumoniae PCR Not detected (Not Detect) Adenovirus (PCR) Not detected (Not Detect) B. pertussis DNA (PCR) Not detected (Not Detecte) B.parapertussis DNA PCR Not detected (Not Detecte) Coronavirus OC43 (PCR) Not detected (Not Detect) Coronavirus HKU1 (PCR) Not detected (Not Detect) Coronavirus 229E (PCR) Not detected (Not Detect) SARS-CoV-2 (PCR) Not detected (Not Detecte) Coronavirus NL63 (PCR) Not detected (Not Detect) Human Metapneumovir PCR Not detected (Not Detect) Influenza Type A (PCR) Not detected (Not Detect) Influenza Type B (PCR) Not detected (Not Detect) M. pneumoniae (PCR) Not detected (Not Detect) Parainfluenza 1 (PCR) Not detected (Not Detect) Parainfluenza 2 (PCR) Not detected (Not Detect) Parainfluenza 3 (PCR) Not detected (Not Detect) Parainfluenza 4 (PCR) Not detected (Not Detect) RSV (PCR) Not detected (Not Detect) Entero/Rhino (PCR) Not detected (Not Detect) 11/15/22 11/15/22 11/15/22 Range/Units 11:15 11:15 11:15 WBC (4.5-11.0) X10^3/uL RBC (4.5-5.9) X10^6/uL Hgb (13.5-17.5) g/dL Hct (41-53) % MCV (80-100) fL MCH (26-34) PG MCHC (30-36) % RDW (11.6-14.8) % Plt Count (150-400) X10^3/uL Neut % (Auto) (50-75) % Lymph % (Auto) (25-40) % [place] % (Auto) (3-14) % Eos % (Auto) (2-4) % Baso % (Auto) (0-2) % Neut # (Auto) (4313-8986) /uL Lymph # (Auto) (0016-6413) /uL [place] # (Auto) (0-900) /uL Eos # (Auto) (0-450) /uL Baso # (Auto) (0-100) /uL PT (10.1-12.7) SECONDS INR (0.9-1.3) APTT (26-36) SECONDS D-Dimer (<500) ng/ml Sodium 138 (137-145) mmol/L Potassium 4.4 (3.4-5.1) mmol/L Chloride 103 (98-107) mmol/L Carbon Dioxide 30 (22-32) mmol/L BUN 24 H (9-20) mg/dL Creatinine 1.08 (0.66-1.25) mg/dL Estimated GFR > 60 (>60) mL/min BUN/Creatinine Ratio 22.2 H (6-22) Glucose 98 (80-110) mg/dL Lactate 1.6 (0.7-2.1) mmol/L Calcium 9.4 (8.4-10.2) mg/dL Total Bilirubin 0.4 (0.2-1.3) mg/dL AST 32 (17-59) IU/L ALT 21 (<50) IU/L Alkaline Phosphatase 50 (38-126) U/L Troponin I < 0.012 (0.01-0.034) ng/mL NT-Pro-B Natriuret Pep 259 H (<125) pg/mL Total Protein 5.9 L (6.3-8.2) g/dL Albumin 3.3 L (3.5-5.0) g/dL Globulin 2.6 (1.7-4.1) g/dL Albumin/Globulin Ratio 1.3 (1.0-2.8) Lipase 42 (23-300) U/L Procalcitonin 0.08 (<0.5) ng/mL Chlamy pneumoniae PCR (Not Detect) Adenovirus (PCR) (Not Detect) B. pertussis DNA (PCR) (Not Detecte) B.parapertussis DNA PCR (Not Detecte) Coronavirus OC43 (PCR) (Not Detect) Coronavirus HKU1 (PCR) (Not Detect) Coronavirus 229E (PCR) (Not Detect) SARS-CoV-2 (PCR) (Not Detecte) Coronavirus NL63 (PCR) (Not Detect) Human Metapneumovir PCR (Not Detect) Influenza Type A (PCR) (Not Detect) Influenza Type B (PCR) (Not Detect) M. pneumoniae (PCR) (Not Detect) Parainfluenza 1 (PCR) (Not Detect) Parainfluenza 2 (PCR) (Not Detect) Parainfluenza 3 (PCR) (Not Detect) Parainfluenza 4 (PCR) (Not Detect) RSV (PCR) (Not Detect) Entero/Rhino (PCR) (Not Detect) 11/15/22 11/15/22 11/15/22 Range/Units 11:15 17:19 22:00 WBC (4.5-11.0) X10^3/uL RBC (4.5-5.9) X10^6/uL Hgb (13.5-17.5) g/dL Hct (41-53) % MCV (80-100) fL MCH (26-34) PG MCHC (30-36) % RDW (11.6-14.8) % Plt Count (150-400) X10^3/uL Neut % (Auto) (50-75) % Lymph % (Auto) (25-40) % [place] % (Auto) (3-14) % Eos % (Auto) (2-4) % Baso % (Auto) (0-2) % Neut # (Auto) (0657-0563) /uL Lymph # (Auto) (6328-5062) /uL [place] # (Auto) (0-900) /uL Eos # (Auto) (0-450) /uL Baso # (Auto) (0-100) /uL PT (10.1-12.7) SECONDS INR (0.9-1.3) APTT 30 172 H* D (26-36) SECONDS D-Dimer 71552 H (<500) ng/ml Sodium (137-145) mmol/L Potassium (3.4-5.1) mmol/L Chloride (98-107) mmol/L Carbon Dioxide (22-32) mmol/L BUN (9-20) mg/dL Creatinine (0.66-1.25) mg/dL Estimated GFR (>60) mL/min BUN/Creatinine Ratio (6-22) Glucose (80-110) mg/dL Lactate (0.7-2.1) mmol/L Calcium (8.4-10.2) mg/dL Total Bilirubin (0.2-1.3) mg/dL AST (17-59) IU/L ALT (<50) IU/L Alkaline Phosphatase (38-126) U/L Troponin I (0.01-0.034) ng/mL NT-Pro-B Natriuret Pep (<125) pg/mL Total Protein (6.3-8.2) g/dL Albumin (3.5-5.0) g/dL Globulin (1.7-4.1) g/dL Albumin/Globulin Ratio (1.0-2.8) Lipase (23-300) U/L Procalcitonin (<0.5) ng/mL Chlamy pneumoniae PCR (Not Detect) Adenovirus (PCR) (Not Detect) B. pertussis DNA (PCR) (Not Detecte) B.parapertussis DNA PCR (Not Detecte) Coronavirus OC43 (PCR) (Not Detect) Coronavirus HKU1 (PCR) (Not Detect) Coronavirus 229E (PCR) (Not Detect) SARS-CoV-2 (PCR) (Not Detecte) Coronavirus NL63 (PCR) (Not Detect) Human Metapneumovir PCR (Not Detect) Influenza Type A (PCR) (Not Detect) Influenza Type B (PCR) (Not Detect) M. pneumoniae (PCR) (Not Detect) Parainfluenza 1 (PCR) (Not Detect) Parainfluenza 2 (PCR) (Not Detect) Parainfluenza 3 (PCR) (Not Detect) Parainfluenza 4 (PCR) (Not Detect) RSV (PCR) (Not Detect) Entero/Rhino (PCR) (Not Detect) Urine Dip Bedside Urine Glucose Negative Bedside Urine Bilirubin - Negative Bedside Urine Ketone - Negative Urine Specific [place] 1.015 Bedside Urine Occult Blood - Negative Bedside Urine pH 6.0 Bedside Urine Protein - Negative Bedside Urine Urobilinogen - Negative Bedside Urine Nitrite - Negative Bedside Urine Leukocytes - Negative Esterase Point of care testing: Urine Dip Bedside Urine Glucose Negative Bedside Urine Bilirubin - Negative Bedside Urine Ketone - Negative Urine Specific [place] 1.015 Bedside Urine Occult Blood - Negative Bedside Urine pH 6.0 Bedside Urine Protein - Negative Bedside Urine Urobilinogen - Negative Bedside Urine Nitrite - Negative Bedside Urine Leukocytes - Negative Esterase MDM Narrative Medical decision making narrative: 71-year-old male with past medical history CPPD, pseudogout, DVT presents to the ED with 10 days of worsening shortness of breath and fatigue. Concern for ACS versus pneumonia versus CHF exacerbation versus PE versus malignancy versus other. Will obtain EKG, chest x-ray, labs, troponin, BNP, D-dimer. Will reassess. Patient's oxygen saturation bruise running below his baseline between 88% and 91%. Patient put on 2L O2 NC, susequently increased to 3L of NC, is maintaining 90-91%. [place] [address]. All other labs within normal limits. EKG without acute findings. Chest x-ray without acute findings. CT PE has been ordered. CT PE shows bilateral pulmonary emboli large on the right involving the right pulmonary artery. There are suspected pulmonary infarcts versus inflammatory or infectious ground-glass opacities. Borderline enlarged mediastinal lymph nodes are seen, likely reactive. There are also subsegmental emboli in the left. sPESI score inddicates high risk. DAYAN score 4, intermediate risk. Discussed findings with patient. Patient to be started on anticoagulation with heparin. Patient's blood pressure intermittently trending soft with systolic in the mid to high 90s. Patient was given 1 L of saline prior to this. Will give another 500ml of IV fluids. Plan is to transfer patient to a center with capability for higher care such as [facility]. Dr. Lu, biochemistry professor from [facility] was consulted, he accepts the patient. Hospitalist from [facility] will admit. [facility] was contacted again, they are unable to accept our patient due to nursing staffing shortages. Our hospitalist Dr. Myers was consulted, he recommends we transfer the patient to a place with higher level of care. Will continue to seek out other places to transfer the patient to. Patient is on 8L NC saturationg at 97%. Will trial high flow. Patient doing well on high-flow. Called patient's to update her on status. Patient is signed out to Dr. Hebert White. [1999] (Christopher) Patient received in sign out from MARICEL Rodriguez. I have reviewed the clinical course and performed an independent history and physical exam. 2127 - spoke with Dr. Lemos, she is happy to accept the patient, but will discuss with ICU first given some increased O2 needs. He has been taken off hiflo and placed back on 6L by MT and tolerates well 2229 - Dr. Wakefield (ICU happy to consult) they will place in progressive bed, still happy to accept <Hebert White DO - Last Filed: 11/16/22 02:22> Critical Care Time Critical Care Time: Yes Total Critical Care Time: 45 Attestation: Critical Care Time [45] minutes: Critical care time is separate from other billable procedures. This critical care time includes consultation with family and other consulting doctors, review of records, and interpretation of data from labs, EKGs, imaging, etc. Discharge Plan Departure Patient Disposition: [facility] Clinical Impression: Pulmonary embolism Prescriptions: No Action ibuprofen 200 MG tablet 200 mg PO Q6HP Qty: 0 Referrals: Romy Martinez MD [Primary Care Provider] -
[2022-11-15] MEDS: SODIUM CHLORIDE 0.9% 1,000 ML 500 ML IV (15:44)
[2022-11-15] MEDS: HEPARIN 5,000 UNIT/ML VIAL 7400 UNIT IV (16:07)
[2022-11-15] MEDS: HEPARIN DRIP 25,000 UNIT/500 ML IV.SOLN 33.475 UNIT IV (16:08)
[2022-11-15 17:25] LABS: PTT Partial Thromboplastin Tim 30 SECONDS (26-36)
--- NOTE | 2022-11-15 19:17 | PC.NURSE ---
RT at bedside. Provider at bedside. Discussing O2 sat. Provider to order high flow.
[2022-11-15 22:58] LABS: PTT Partial Thromboplastin Tim 172 SECONDS (26-36)
== END 2022-11-15 23:55 | disposition short-term general hospital (02) ==
PROVIDERS: Emergency Medicine; Student in an Organized Health Care Education/Training Program; Emergency Provider Emergency Medicine; Family Provider Family Medicine; PCP Family Medicine
DX: I26.99 Other pulmonary embolism without acute cor pulmonale (principal); R79.1 Abnormal coagulation profile; Z20.822 Contact with and (suspected) exposure to COVID-19
CPT/HCPCS: 36415; 71045; 71275; 80053; 81003; 83605; 83690; 83880; 84145; 84484; 85025; 85379; 85610; 85730; 87040; 87633; 93005; 96361; 96365; 96366; 96375; 99285; J1644

== ENCOUNTER → 2023-12-07 08:14 | Outpatient (CLI) | payer MEDICARE, OTHER, SELFPAY ==
--- NOTE | 2023-12-07 08:16 | DI.RAD.S_ITS ---
PROCEDURE: XR DEXA AXIAL SKELETON INDICATIONS: Calcium pyrophosphate deposition disease of knee COMPARISON: None. FINDINGS: Lumbar Spine: Bone mineral density 1.235 g/cm2, T score 1.4. Left Hip: Bone mineral density 0.951 g/cm2, T score 0.1. Left Femoral Neck: Bone mineral density 0.794 g/cm2, T score -0.5. Right Hip: Bone mineral density 0.891 g/cm2, T score -0.4. Right Femoral Neck: Bone mineral density 0.776 g/cm2, T score -0.7. Fracture Risk Calculation (when applicable): 10-year fracture risk of a major osteoporotic fracture 8.6 % and of a hip fracture 2.3%. (T score greater or equal to -1.0 to: NORMAL) (T score from -1.1 to -2.4: OSTEOPENIA) (T score less than or equal to -2.5: OSTEOPOROSIS) IMPRESSION: Normal bone mineral density Follow-up guidelines as follows: Osteoporosis: Consider a repeat DEXA and Vertebral Fracture Assessment (VFA) exam in 2 years or sooner if medically necessary, to reassess this patient's status. Osteopenia: Consider a repeat DEXA in 2-3 years to reassess this patient's status, or if there is a new clinical indication. Normal: Consider a repeat DEXA in 5 years or sooner, or if there is a new clinical indication. All treatment decisions require clinical judgment and consideration of individual patient factors, including patient preferences, comorbidities, previous drug use, risk factors not captured in the FRAX model (e.g., frailty, falls, vitamin D deficiency, increased bone turnover, interval significant decline in bone density ) and possible under- or over-estimation of fracture risk by FRAX. In addition, the NOF Guide recommends that FDA-approved medical therapies be considered in postmenopausal women and men age >= 50 years with a: * Hip or vertebral (clinical or morphometric) fracture * T-score of <=-2.5 at the spine or hip * Ten-year fracture probability by FRAX of >= 3% for hip fracture or >=20% for major osteoporotic fracture. People with diagnosed cases of osteoporosis or at high risk for fracture should have regular bone mineral density tests. For patients eligible for Medicare, routine testing is allowed once every 2 years. The testing frequency can be increased to one year for patients who have rapidly progressing disease, those who are receiving or discontinuing medical therapy to restore bone mass, or have additional risk factors. Dictated by: Casey Ortega M.D. on 12/07/2023 at 10:14 Approved by: Casey Ortega M.D. on 12/07/2023 at 10:19
== END ==
PROVIDERS: Family Provider Family Medicine; PCP Family Medicine; Referring Provider Internal Medicine Rheumatology; Visit Provider Internal Medicine Rheumatology
DX: M11.869 Other specified crystal arthropathies, unspecified knee
CPT/HCPCS: 77080